=== PATIENT | female | born 1955 | race Caucasian/White ===

== ENCOUNTER 2019-05-26 14:34 | Outpatient (CLI) | payer OTHER, SELFPAY ==
[2019-05-26] VITALS (9 sets, daily range): BP systolic 109–143; BP diastolic 70–97; PULSE 66–72; RESP 16–18; TEMP 36.5; O2SAT 95–98
--- NOTE | 2019-05-26 14:35 | DI.RAD.S_ITS ---
PROCEDURE: PAIN L/SI FACET INJ/BLK 1STL INDICATIONS: SPONDYLOSIS FINDINGS: Fluoroscopic spot filming was performed to verify placement of spinal needles at the L4-L5 level(s), as labeled on the films. Appropriate location(s) of the needle tip(s) was confirmed by injection of iodinated contrast. IMPRESSION: Fluoroscopy for pain management. Dictated by: Arthur Kirkpatrick M.D. on 05/26/2019 at 17:33 Approved by: Arthur Kirkpatrick M.D. on 05/26/2019 at 17:34
[2019-05-26] MEDS: MIDAZOLAM 5 MG/5 ML VIAL IV (15:43)
[2019-05-26] MEDS: fentaNYL 100 MCG/2 ML INJ 50 MCG IV (15:43)
[2019-05-26] MEDS: IOPAMIDOL 15 ML VIAL 3 ML INJ (15:48)
[2019-05-26] MEDS: BETAMETHASONE 30 MG/5 ML MDV 12 MG INJ (15:49)
[2019-05-26] MEDS: BUPIVACAINE 0.5% (PF) VIAL 2 ML INJ (15:49)
--- NOTE | 2019-05-26 15:50 | PC.NURSE ---
ASSISTING PT OFF TABLE AND TRANSPORTING TO POST PROC AREA IN STABLE CONDITION. PASSING RN CARE OF PT TO BIPIN Jenkins RN.
--- NOTE | 2019-05-26 15:56 | PM.PROC.1 ---
Procedures Date/Time Date of procedure: 05/26/19 Time of procedure: 15:56 General Procedure description: PREOP DIAGNOSIS 1. FACET ARTHROPATHY, 2. AXIAL LBP, 3. MULTILEVEL DDD, POST OP DIAGNOSIS 1. FACET ARTHROPATHY, 2. AXIAL LBP, 3. MULTILEVEL DDD, PROCEDURES 1. FLUORSCOPICALLY GUIDED CONTRAST CONTROLLED FACET JOINT INJECTIONS LEFT L4/5 FACET CYST RUPTURE SURGEON: Dinh Hess, DO INDICATIONS Lita is referred by [facility] for treatment of Axial LBP FINDINGS Multilevel Facet Arthropathy with Clinically significant axial LBP DESCRIPTION OF PROCEDURE Fluoroscopically guided, contrast-controlled left L4/5 facet cyst rupture Following review of allergy and review of potential side effects and complications, including, but not necessarily limited to, infection, allergic reaction, local tissue breakdown, stroke, temporary or permanent nerve injury, paralysis, and possible , the patient indicated that the patient understood and agreed to proceed. An informed consent document was signed by the patient, witnessed by a nurse, and placed in the patient's chart. Additionally, other treatment options including medications, modalities, and physical therapy were reviewed with the patient. After review of previous anaesthesic history and IV conscious sedation the patient was deemed safe to proceed with todays procedure with IV conscious sedation as ASA class II designation. Safety time-out was performed to confirm patient ID, procedure to be performed and site of procedure. IV sedation was accomplished with a combination of 2mg of Versed and 50mcg of Fentanylwas administered by the RN after DO order, titrated to patient comfort during the course of the procedure while the patient remained responsive to all verbal commands. In the prone position, following sterile prep and drape of the lumbar region, the posterior aspect of the left L4/5 facet joint was identified fluoroscopically. The skin was anesthetized via a 25-gauge 1.5-inch needle with 1% lidocaine solution into the corresponding facet joint. At this point, a 22-gauge 3.5-inch spinal needle was atraumatically introduced and advanced under fluoroscopic guidance into the corresponding facet joint. Following negative aspiration, injection of approximately 0.2-cc of Isovue 200 confirmed interarticular placement without vascular uptake. The joint was then pressurized and the cyst ruptured with fenestrations. Radiological data, including multiple fluoroscopic views of the lumbosacral spine, reveal a spinal needle at the left L4/5, L5/S1 facet joints. Subsequent views show flow of contrast material both superiorly and inferiorly within the joint space without vascular or intrathecal uptake. At this point, a total of 0.5 cc including a mixture of 0.25cc Marcaine and 0.25cc betamethasone was injected without complication into each of the corresponding facet joints. The procedure tolerated the procedure well without signs or symptoms of complications prior to transfer to the recovery area continued monitoring without incident. The patient was then transferred to the recovery area where they were observed for an appropriate period of time after the injection. The patient reported a VAS score of 7 prior to the procedure and a post-procedure VAS of 0. Total Fluoroscopy Time: 12.7 seconds Total Conscious Sedation Time: 24min POST OP INSTRUCTIONS The patient was provided a Pain Log to continue to record their response to the target-specific procedure prior to follow-up visit with their referring physician. Additionally, specific post-injection care instructions and a contact number to our office were provided if concerns arise regarding possible complications associated with the procedure are suspected. Dinh Hess DO
--- NOTE | 2019-05-26 16:48 | PC.NURSE ---
Discharge note: Patient arrived awake and alert. Handoff report received from Juanpablo Wills RN. VSS. O2 Sat WNL. No complaints of pain. Discharge instructions reviewed with good understanding. Discharged to home. w/c to car at 1630.
--- NOTE | 2019-05-26 17:17 | PC.NURSE ---
VERSED AND FENTANYL PREPARED AND ADMINISTERED BY THIS RN. ALL OTHER MEDS PREPARED AND ADMINISTERED BY DR. SABILLON.
== END 2019-05-26 16:30 | disposition home or self-care (01) ==
PROVIDERS: PCP Physician Assistant; Visit Provider Physical Medicine & Rehabilitation
DX: M47.816 Spondylosis without myelopathy or radiculopathy, lumbar region (principal); M54.5 Low back pain; M51.36 Other intervertebral disc degeneration, lumbar region
CPT/HCPCS: 64493; 99152; J0702; J2250; J3010

== ENCOUNTER → 2024-12-14 09:02 | Outpatient (CLI) | payer MEDICARE, OTHER, SELFPAY ==
[2024-12-14 09:36] LABS: Add Manual Diff / Slide Review NO; Hematocrit 47.1 % (36-46); Hemoglobin 15.9 g/dL (12.0-16.0); Lymphocytes Absolute Auto 2100 /uL (1100-4500); Mean Corpuscular HGB Conc 33.7 % (30-36); Mean Corpuscular Hemoglobin 30.0 PG (26-34); Mean Corpuscular Volume 88.8 fL (80-100); Platelet Count 225 X10^3/uL (150-400)
[2024-12-14 09:44] LABS: Hemoglobin A1C% w Est Avg Glu 5.7 % (4.0-6.0)
[2024-12-14 09:53] LABS: Alanine Aminotransferase 32 IU/L (<35); Albumin 4.7 g/dL (3.5-5.0); Albumin Globulin Ratio 1.8 (1.0-2.8); Alkaline Phosphatase 58 U/L (38-126); Blood Urea Nitrogen 29 mg/dL (7-17); Calcium 10.4 mg/dL (8.4-10.2); Carbon Dioxide 29 mmol/L (22-32); Chloride 101 mmol/L (98-107); Cholesterol 197 mg/dL (140-199); Estimated Glomerular Filt Rate > 60 mL/min (>60); Globulin 2.6 g/dL (1.7-4.1); Glucose 114 mg/dL (70-99); HDL Cholesterol 49 mg/dL (40-60); HEMOLYSIS < 15 (0-50); Potassium 4.4 mmol/L (3.4-5.1); Sodium 137 mmol/L (137-145); Total Protein 7.3 g/dL (6.3-8.2); Triglycerides 98 mg/dL (35-150)
[2024-12-14 10:21] LABS: Thyroid Stimulating Hormone 0.870 uIU/mL (0.47-4.68)
== END ==
PROVIDERS: PCP Student in an Organized Health Care Education/Training Program; Referring Provider Student in an Organized Health Care Education/Training Program; Visit Provider Student in an Organized Health Care Education/Training Program
DX: R63.5 Abnormal weight gain (principal); E66.9 Obesity, unspecified
CPT/HCPCS: 36415; 80053; 80061; 83036; 84443; 85025

== ENCOUNTER → 2025-01-04 06:49 | Outpatient (CLI) | payer MEDICARE, OTHER, SELFPAY ==
--- NOTE | 2025-01-04 06:52 | DI.ECHO.S_ITS ---
[facility] : : [address] : : [place] : : [id number] : : Phone: [phone] Echocardiogram Report + + :Name: MARINE SUN Study Date: 01/04/2025 Height: 64 in : :[facility] ReadingLocation: Weight: 239 lb : : Gender: Female BSA: 2.1 m2 : :: 1955 Age: 69 yrs BP: 132/85 mmHg: :Reason For Study: HYPERTENSION : :Ordering Physician: HEMAL, : :CHAVA Performed By: Melisa Tillman : :Referring: CHAVA RECIO : + + Interpretation Summary The left ventricle is normal in size and wall thickness. The ejection fraction is estimated to be 55-60%. There are no focal wall motion abnormalities. Grade I diastolic dysfunction with normal left atrial pressure. The right ventricle is mildly dilated. The right ventricular systolic function is normal. The right ventricular systolic pressure is estimated to be at least 24 mmHg based on an estimated right atrial pressure of 3 mm Hg. The left atrial size is normal. There is no significant valvular heart disease. The aortic root is normal size. Procedure: A two-dimensional transthoracic echocardiogram with color flow and Doppler was performed. The study quality was technically adequate. There is no prior echocardiogram noted for this patient. The patient was in sinus rhythm with heart rates between 56-70 bpm during the exam. Left Ventricle: The left ventricle is normal in size and wall thickness. The ejection fraction is estimated to be 55-60%. There are no focal wall motion abnormalities. Grade I diastolic dysfunction with normal left atrial pressure. Right Ventricle: The right ventricle is mildly dilated. The right ventricular systolic function is normal. Atria: The left atrial size is normal. The right atrium is normal in size. There is no Doppler evidence for an interatrial shunt. Mitral Valve: The mitral valve leaflets appear to open well. There is trace mitral regurgitation. Aortic Valve: The aortic valve is trileaflet. The aortic valve opens well. There is no aortic valve stenosis. No aortic regurgitation is present. Tricuspid Valve: The tricuspid valve leaflets are thin and pliable. There is mild tricuspid regurgitation. The right ventricular systolic pressure is estimated to be at least 24 mmHg based on an estimated right atrial pressure of 3 mm Hg. Pulmonic Valve: The pulmonic valve leaflets are thin and pliable; valve motion is normal. There is trace pulmonic regurgitation. There is no significant valvular heart disease. Great Vessels: The aortic root is normal size. The dimensions of the ascending aorta are normal. The IVC is of normal diameter and collapses greater than 50% with a sniff. This suggests a low right atrial pressure of 3 mm Hg. Pericardium/ Pleura There is no pericardial effusion. There is no pleural effusion. MMode/2D Measurements & Calculations LVIDd: 4.6 cm LVOT diam: 2.0 cm LVIDs: 3.1 cm Ao root diam: 3.2 cm FS: 32.6 % asc Aorta Diam: 3.4 cm EPSS: 0.72 cm Ao Arch Diam (Prox Trans): 3.4 cm IVSd: 0.98 cm LVPWd: 0.88 cm LV granado. diameter/BSA (cm/m^2): 2.2 LV sys. diameter/BSA (cm/m^2): 1.5 LA A2 area: 17.8 cm2 RA long axis: 5.1 cm LA A4 area: 13.5 cm2 RA area: 16.6 cm2 LA length (vol): 5.1 cm RA vol: 46.1 ml LA vol: 39.8 ml RA : 21.8 ml/m2 LA vol index: 18.9 ml/m2 IVC diam: 1.5 cm RVD1 (basal): 4.1 cm TAPSE: 1.8 cm Doppler Measurements & Calculations Ao V2 max: 161.8 cm/sec LVOT Max Kwan: 79.6 cm/sec Ao V2 mean: 111.3 cm/sec LV V1 max P.5 mmHg Ao max P.5 mmHg LV V1 VTI: 18.0 cm Ao mean P.5 mmHg CHARLES(I,D): 1.8 cm2 Ao V2 VTI: 33.4 cm CHARLES(V,D): 1.6 cm2 sev ratio: 0.54 CHARLES indexed to BSA (cm^2/m^2): 0.84 MV E max kwan: 57.1 cm/sec TR max kwan: 233.4 cm/sec MV A max kwan: 69.6 cm/sec TR max P.8 mmHg MV E/A: 0.82 PA V2 max: 90.7 cm/sec Med Peak E' Kwan: 6.4 cm/sec PA V2 mean: 62.4 cm/sec E/E' med: 8.9 PA mean P.8 mmHg Lat Peak E' Kwan: 8.2 cm/sec PA pr(Accel): 22.9 mmHg E/E' lat: 7.0 E/e' average: 8.0 MV dec time: 0.25 sec SV(LVOT): 59.1 ml Reading Physician:12:44 PM
== END ==
PROVIDERS: PCP Student in an Organized Health Care Education/Training Program; Referring Provider Student in an Organized Health Care Education/Training Program; Visit Provider Student in an Organized Health Care Education/Training Program
DX: I07.1 Rheumatic tricuspid insufficiency (principal); I10 Essential (primary) hypertension
CPT/HCPCS: 93306

== ENCOUNTER → 2025-03-17 11:18 | Outpatient (CLI) | payer MEDICARE, OTHER, SELFPAY ==
--- NOTE | 2025-03-17 11:21 | DI.RAD.S_ITS ---
PROCEDURE: XR KNEE RT 3V INDICATIONS: Right knee pain TECHNIQUE: 3 views of the knee were acquired. COMPARISON: None. FINDINGS: Bones: There are no osseous abnormalities. 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 Soft tissues: Normal IMPRESSION: Severe degeneration. Dictated by: Shon Benavidez M.D. on 03/18/2025 at 11:09 Approved by: Shon Benavidez M.D. on 03/18/2025 at 11:10
== END ==
PROVIDERS: PCP Student in an Organized Health Care Education/Training Program; Referring Provider Student in an Organized Health Care Education/Training Program; Visit Provider Student in an Organized Health Care Education/Training Program
DX: M17.11 Unilateral primary osteoarthritis, right knee (principal); M25.561 Pain in right knee
CPT/HCPCS: 73562